=== PATIENT | male | born 1985 | race Caucasian/White ===

== ENCOUNTER 2020-12-14 12:21 | Emergency (ER) | payer BC ==
[2020-12-14] MEDS ORDERED: EPINEPHrine 1 MG/ML SDV IM PRN (13:28)
[2020-12-14] MEDS ORDERED: diphenhydrAMINE 50 MG/ML SDV IVPUSH PRN (13:28)
[2020-12-14] MEDS ORDERED: Famotidine 20 MG/2 ML SDV IVPUSH PRN (13:28)
[2020-12-14] MEDS ORDERED: methylPREDNISolone Sodium Succinate 125 MG/2 ML SDV IVPUSH PRN (13:28)
--- NOTE | 2020-12-14 13:29 | EDM.PDOC ---
ED HPI GENERAL MEDICAL PROBLEM - General Chief Complaint: Respiratory Problem Stated Complaint: COVID + \ PASSED OUT Time Seen by Provider: 12/14/20 12:30 Source of Information: Reports: Patient History Limitations: Reports: No Limitations - History of Present Illness INITIAL COMMENTS - FREE TEXT/NARRATIVE: 34-year-old male presents the emergency department today after being seen at the [facility]. The patient was having lab work drawn when they called a rapid response as he passed out with his blood draw. Once he came to, EKG and lab studies were completed. 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 He states he did undergo ablation at one of the hospitals in [place] to abort it however he states it was unsucce ssful. He states he does not have any effects or problems regarding this diagnosis. Lab studies and a troponin were completed as well and they were unremarkable. The patient did test positive for Covid today. He was to have monoclonal antibody treatment at the clinic however the clinic provider who saw him did not feel comfortable giving this infusion in the clinic so he was informed that he needed to be seen in the emergency department. Patient states he is otherwise healthy. He did not receive his Covid vaccinations. He states he developed Covid-like symptoms 4 days ago. States he has had fevers as high as 103 degrees. He states he has had body aches, cough and shortness of breath. He has had some diarrhea however he states he has not had any nausea or vomiting. Appetite has been decreased. He denies generalized body aches. He states he is not a smoker. He does not take any prescription medications. He does not have a primary care provider. Lab studies that were completed at the clinic at 11:12 AM this morning reveal a hematology including a WBC of 3.49, hemoglobin 14.7, hematocrit 41.9, platelet count 128 Coagulation reveals a D-dimer of 0.33 Chemistry reveals a sodium of 141, potassium 4.4, anion gap 12.4, BUN 11, creatinine 1.0, glucose 97, troponin less than 0.017, C-reactive protein 2.3 Patient is Covid positive Patient did have a two-view chest x-ray completed at the clinic at 10:58 AM. Radiologist impression: 1. Findings which are felt compatible with minimal bronchitis. 2. Nothing acute is otherwise seen. Treatments ASSISTIVE TECHNOLOGY SPECIALIST: Reports: Other (see below) Other Treatments ASSISTIVE TECHNOLOGY SPECIALIST: motrin Headache Pain Score (Numeric/FACES): 3 Throat Pain Score (Numeric/FACES): 2 Generalized Pain Score (Numeric/FACES): 6 - Related Data Allergies Allergy/AdvReac Type Severity Reaction Status Date / Time No Known Allergies Allergy Verified 12/14/20 12:35 Home Meds: Home Meds Albuterol Sulfate [Albuterol Sulfate HFA] 1 - 2 puff INH ASDIRECTED PRN 12/14/20 [History] Past Medical History Cardiovascular History: Reports: Other (See Below) Other Cardiovascular History: Parkinson white cardiac rhythm Respiratory History: Reports: Asthma Social & Family History - Tobacco Use Tobacco Use Status *Q: Never Tobacco User - Caffeine Use Caffeine Use: Reports: Coffee - Recreational Drug Use Recreational Drug Use: No ED ROS GENERAL - Review of Systems Review Of Systems: Comprehensive ROS is negative, except as noted in HPI. ED EXAM, GENERAL - Physical Exam Exam: See Below General Appearance: Alert, WD/WN, No Apparent Distress Ears: Normal External Exam, Hearing Grossly Normal Nose: Normal Inspection Throat/Mouth: Normal Inspection, Normal Lips, Normal Voice, No Airway Compromise Head: Atraumatic Neck: Normal Inspection, Supple Respiratory/Chest: No Respiratory Distress, Lungs Clear, Normal Breath Sounds, No Accessory Muscle Use, Chest Non-Tender Cardiovascular: Normal Peripheral Pulses, Regular Rate, Rhythm, No Edema, No Murmur Peripheral Pulses: 2+: Radial (L), Radial (R) GI/Abdominal: Normal Bowel Sounds, Soft, Non-Tender, No Distention (Male) Exam: Deferred Rectal (Males) Exam: Deferred Back Exam: Normal Inspection Extremities: Normal Inspection Neurological: Alert, Oriented, Normal Cognition Psychiatric: Normal Affect, Normal Mood Skin Exam: Warm, Dry, Intact, Normal Color, No Rash Lymphatic: No Adenopathy Course - Vital Signs Text/Narrative:: As stated above, patient presents with Covid-like symptoms. Tested positive for Covid at the [facility] clinic this morning. Patient was having lab studies collected prior to receiving monoclonal antibodies and did have a vasovagal response and passed out. At the time of my exam, the patient is hemodynamically stable with O2 saturations of 97% on room air. Exam is otherwise unremarkable. I spoke with the patient to provide information about Regeneron treatment for himself. I offered her the patient and caregiver CYN Steward fax sheet to read and review. I stated the drug has been approved by an emergency use authorization process and has not been fully FDA approved or reviewed. The patient meets the EUA requirements. I discussed there are other potential treatment options that are currently not FDA approved to treat COVID-19. Offered opportunity to ask questions and all questions were answered. The patient voiced understanding and agreed to proceed with the treatment for himself. Last Recorded V/S: Last Vital Signs Temp 98.6 F 12/14/20 12:29 Pulse 93 12/14/20 12:29 Resp 20 12/14/20 12:29 BP 125/71 12/14/20 12:29 Pulse Ox 97 12/14/20 12:29 - Orders/Labs/Meds Orders: Active Orders 24 hr Category Date Time Status Vital Signs [RC] Q15M Care 12/14/20 13:29 Active EPINEPHrine [Adrenalin] Med 12/14/20 13:28 Active 0.3 mg IM ASDIRECTED PRN Famotidine [Pepcid] Med 12/14/20 13:28 Active 20 mg IVPUSH ASDIRECTED PRN Sodium Chloride 0.9% [Saline Flush] Med 12/14/20 13:30 Active 30 ml FLUSH ASDIRECTED diphenhydrAMINE [Benadryl] Med 12/14/20 13:28 Active 50 mg IVPUSH ASDIRECTED PRN methylPREDNISolone Sod Succ [Solu-MEDROL] Med 12/14/20 13:28 Active 125 mg IVPUSH ASDIRECTED PRN Medication Orders Diphenhydramine HCl (Diphenhydramine 50 Mg/Ml Sdv) 50 mg IVPUSH ASDIRECTED PRN PRN Reason: hypersensitivity reaction Epinephrine HCl (Epinephrine 1 Mg/Ml Sdv) 0.3 mg IM ASDIRECTED PRN PRN Reason: hypersensitivity reaction Famotidine (Famotidine 20 Mg/2 Ml Sdv) 20 mg IVPUSH ASDIRECTED PRN PRN Reason: hypersensitivity reaction Methylprednisolone Sodium Succinate (Methylprednisolone Sodium Succinate 125 Mg/2 Ml Sdv) 125 mg IVPUSH ASDIRECTED PRN PRN Reason: hypersensitivity reaction Sodium Chloride (Sodium Chloride 0.9% 10 Ml Syringe) 30 ml FLUSH ASDIRECTED [facility] Meds: Medications Generic Name Dose Route Start Last Admin Trade Name Calebq PRN Reason Stop Dose Admin Diphenhydramine HCl 50 mg 12/14/20 13:28 Diphenhydramine 50 Mg/Ml Sdv IVPUSH ASDIRECTED PRN hypersensitivity reaction Epinephrine HCl 0.3 mg 12/14/20 13:28 Epinephrine 1 Mg/Ml Sdv IM ASDIRECTED PRN hypersensitivity reaction Famotidine 20 mg 12/14/20 13:28 Famotidine 20 Mg/2 Ml Sdv IVPUSH ASDIRECTED PRN hypersensitivity reaction Methylprednisolone Sodium Succinate 125 mg 12/14/20 13:28 Methylprednisolone Sodium Succinate 125 Mg/2 Ml Sdv IVPUSH ASDIRECTED PRN hypersensitivity reaction Sodium Chloride 30 ml 12/14/20 13:30 Sodium Chloride 0.9% 10 Ml Syringe FLUSH ASDIRECTED TREASURE Discontinued Medications Generic Name Dose Route Start Last Admin Trade Name Calebq PRN Reason Stop Dose Admin Bamlanivimab 700 mg/ 160 mls @ 310 mls/hr 12/14/20 14:15 12/14/20 14:30 Etesevimab 1,400 mg/ Sodium IV 12/14/20 14:45 310 mls/hr Chloride ONETIME ONE Administration - Re-Assessments/Exams Free Text/Narrative Re-Assessment/Exam: 12/14/20 15:53 Patient did receive Regeneron infusion and tolerated it well. He has been observed for 1 hour after infusion. He will be discharged home. Departure - Departure Time of Disposition: 15:53 Disposition: Home, Self-Care 01 Condition: Good Clinical Impression: COVID - Discharge Information Instructions: Prone Position Therapy, COVID-19: Quarantine vs. Isolation - [facility] [place] (02/19/2020) Referrals: PCP,None [Primary Care Provider] - Forms: ED Department Discharge Additional Instructions: You were seen in the emergency department today after being evaluated at the clinic and having a syncopal episode. Lab studies were completed at the clinic today as well as EKG and a chest x-ray. Lab studies were essentially unremarkable. Chest x-ray did not show any pneumonia. EKG did show that you have [id number] however you are already aware of this. While you are in the emergency department you received monoclonal antibody treatment. This has been shown to decrease the length and severity of Covid. You will likely feel better in the next couple of days. You do need to isolate for the next 10 days. Once your symptoms have resolved it is recommended that you receive your Covid vaccinations 5 weeks from that time. Should your condition worsen or change, do not hesitate returning to the emergency department. Sepsis Event Note (ED) - Focused Exam Vital Signs: Vital Signs Temp Pulse Resp BP Pulse Ox 12/14/20 12:29 98.6 F 93 20 125/71 97 - My Orders Last 24 Hours: My Active Orders 12/14/20 13:28 EPINEPHrine [Adrenalin] 0.3 mg IM ASDIRECTED PRN Famotidine [Pepcid] 20 mg IVPUSH ASDIRECTED PRN diphenhydrAMINE [Benadryl] 50 mg IVPUSH ASDIRECTED PRN methylPREDNISolone Sod Succ [Solu-MEDROL] 125 mg IVPUSH ASDIRECTED PRN 12/14/20 13:29 Vital Signs [RC] Q15M 12/14/20 13:30 Sodium Chloride 0.9% [Saline Flush] 30 ml FLUSH ASDIRECTED - Assessment/Plan Last 24 Hours: My Active Orders 12/14/20 13:28 EPINEPHrine [Adrenalin] 0.3 mg IM ASDIRECTED PRN Famotidine [Pepcid] 20 mg IVPUSH ASDIRECTED PRN diphenhydrAMINE [Benadryl] 50 mg IVPUSH ASDIRECTED PRN methylPREDNISolone Sod Succ [Solu-MEDROL] 125 mg IVPUSH ASDIRECTED PRN 12/14/20 13:29 Vital Signs [RC] Q15M 12/14/20 13:30 Sodium Chloride 0.9% [Saline Flush] 30 ml FLUSH ASDIRECTED
[2020-12-14] MEDS ORDERED: Sodium Chloride 0.9% 10 ML Syringe FLUSH SCH (13:30)
[2020-12-14] MEDS ORDERED: Bamlanivimab 700 MG, ETESEVIMAB 1,400 MG in Sodium Chloride 0.9% 100 ML IV ONE (14:15)
== END 2020-12-14 16:13 | disposition home or self-care (01) ==
LOC: JD.ED 12:21
DX: U07.1 COVID-19 (principal); J45.909 Unspecified asthma, uncomplicated
CPT/HCPCS: 99284; M0245; Q0245